=== PATIENT | female | born 1980 | race Caucasian/White ===

== ENCOUNTER 2017-12-19 06:59 | Day surgery (SDC) | payer OTHER ==
[2017-12-12 10:42] LABS: HEMATOCRIT 43.1 % (36.0-47.0); HEMOGLOBIN 14.7 g/dL (12.0-15.5); MEAN CORPUSCULAR HEMOGLOBIN 30.3 pg (27.0-33.4); MEAN CORPUSCULAR HGB CONC 34.1 g/dL (32.0-36.0); MEAN CORPUSCULAR VOLUME 89 fl (80-97); PLATELET COUNT 239 10^3/uL (150-450); RED BLOOD COUNT 4.85 10^6/uL (3.72-5.28); RED CELL DISTRIBUTION WIDTH 12.9 % (11.5-14.0); WHITE BLOOD COUNT 6.4 10^3/uL (4.0-10.5)
[2017-12-12 10:46] LABS: APPEARANCE,URINE CLEAR; BILIRUBIN,URINE SMALL (NEGATIVE); COLOR,URINE YELLOW; GLUCOSE, URINE NEGATIVE (NEGATIVE); KETONES,URINE NEGATIVE (NEGATIVE)
[2017-12-12 10:47] LABS: LEUKOCYTE ESTERASE,URINE TRACE (NEGATIVE); NITRITE,URINE NEGATIVE (NEGATIVE); PROTEIN,URINE 30 mg/dL (NEGATIVE); URINE SPECIFIC GRAVITY 1.023
[2017-12-12 11:23] LABS: ALANINE AMINOTRANSFERASE 62 U/L (9-52); ALBUMIN 4.3 g/dL (3.5-5.0); ALKALINE PHOSPHATASE 46 U/L (38-126); ANION GAP 9 (5-19); ASPARTATE AMINO TRANSFERASE 24 U/L (14-36); BILIRUBIN,DIRECT 0.3 mg/dL (0.0-0.4); BILIRUBIN,TOTAL 0.5 mg/dL (0.2-1.3); BLOOD UREA NITROGEN 12 mg/dL (7-20); CALCIUM 9.9 mg/dL (8.4-10.2); CARBON DIOXIDE 28 mmol/L (22-30); CHLORIDE 104 mmol/L (98-107); GLUCOSE 74 mg/dL (75-110); POTASSIUM 4.4 mmol/L (3.6-5.0); SODIUM 140.7 mmol/L (137-145)
[~2017-12-19 06:59] MED LIST: CEFAZOLIN 1 GM/D5W RTU 1 GM/50 ML RTUPB IV PRN; LACTATED RINGERS 1000 ML IV PRN; LIDOCAINE 0.5% INJ-PF (5 MG/ML) 50 ML SDV SUBCUT PRN; SCOPOLAMINE HYDROBROMIDE 1.5 MG PATCH.TD72 TD PRN
[2017-12-19] MEDS ORDERED: MIDAZOLAM 2 MG/2 ML INJ ONE (08:56)
[2017-12-19] MEDS ORDERED: FENTANYL CITRATE INJ/PF 100 MCG/2 ML AMPUL ONE (08:56)
[2017-12-19] MEDS ORDERED: PROPOFOL INJ 200 MG/20 ML VIAL IV ONE (08:56)
[2017-12-19] MEDS ORDERED: ACETAMINOPHEN 100 ML IV ONE (08:56)
[2017-12-19] MEDS ORDERED: BUPIVACAINE HCL 0.25 % INJ/PF (2.5 MG/1 ML) 30 ML VIAL ONE (09:13)
[2017-12-19] MEDS ORDERED: MORPHINE SULFATE 10 MG/ML INJ IV PRN (09:46)
[2017-12-19] MEDS ORDERED: FENTANYL CITRATE INJ/PF 100 MCG/2 ML AMPUL IV PRN ×3 (09:46)
[2017-12-19] MEDS ORDERED: MEPERIDINE HCL/PF INJ 25 MG/1 ML DISP.SYRIN IV PRN (09:46)
[2017-12-19] MEDS ORDERED: PROMETHAZINE HCL INJ 25 MG/1 ML VIAL IV PRN ×2 (09:46→11:11)
[2017-12-19] MEDS ORDERED: DIPHENHYDRAMINE HCL 50 MG/ML VIAL IV PRN (09:46)
[2017-12-19] MEDS: FENTANYL CITRATE INJ/PF 100 MCG/2 ML AMPUL ONE ×2 (10:40→10:44)
--- NOTE | 2017-12-19 11:09 | OPERATIVE REPORT E ---
Operative Report NAME: JULIO C HAYWOOD : 1980 AGE: 37Y DATE OF SURGERY: 12/19/2017 ROOM: PREOPERATIVE DIAGNOSIS: Undesired fertility. POSTOPERATIVE DIAGNOSES: 1. Undesired fertility. 2. Extensive pelvic endometriosis with adhesions. 3. Hepatomegaly. OPERATION: Laparoscopic Filshie clip application. SURGEON: KAEL FERRIS M.D. ANESTHESIA: General and 0.25% Marcaine. PERTINENT HISTORY AND OPERATIVE FINDINGS: This is a 37-year-old multiparous white female who desires elective sterilization. She is aware it is a permanent procedure with a small failure rate. At the time of surgery, the vulva appeared to be normal. The vagina was intrinsically normal with the exception that over in the right uterosacral ligament there were endometrial implants that could be visualized at the apex of the vagina. Cervix appeared to be normal. Uterus appeared to be normal. The tubes appeared to be normal. The ovaries were normal, however, there were adhesions between the sigmoid colon and the uterosacral ligaments on the left. There was pelvic endometriosis throughout the cul-de-sac area. The liver did appear to be minimally enlarged and the patient had a serosal fibroid. OPERATIVE PROCEDURE: Patient was brought to the OR, placed on the table in supine position, inducted under general anesthesia. Following this, she was repositioned in dorsal lithotomy position, prepped and draped in a sterile fashion. The bladder was drained of about 25 mL of clear urine. Pelvic under anesthesia was done. It became apparent that she had some cul-de-sac endometriosis on the right side. Cervix appeared normal. It easily admitted the uterine sound which was sounded to 8 cm. A tenaculum probe was inserted. The other equipment was removed. Attention was turned toward the abdominal wall. A Veress needle was introduced umbilically and carried through the various layers until the abdominal cavity was entered. Upon entering the abdominal cavity, it was hooked up to CO2. The opening pressure was 5 cm of water. She had approximately 3 L of CO2 injected to obtain a pneumoperitoneum. The Veress needle was removed. A small infraumbilical incision was made in a semilunar fashion as she had a previous incision there. Through this incision, a trocar and sleeve were inserted. The trocar was removed and through the sleeve, a laparoscope was inserted. A second incision was made suprapubically and through this incision a trocar and sleeve were inserted. The trocar was removed and through the sleeve, a probe was inserted. Contents of the pelvis and abdomen were video recorded and at this point in time, the probe was removed and the Filshie clip applicator was inserted. The salpinx on the right was then picked up at its isthmus site and Filshie clip was applied. The same procedure was carried out on the left side. We had taken pictures of this terminated procedure. The suprapubic sleeve was removed. There was no evidence of active bleeding. The CO2 was allowed to escape. The subumbilical sleeve was removed. Both incisions had approximately 3 mL of 0.25% Marcaine injected. The fascia was closed at both of these incisions with interrupted 0 Vicryl. The subumbilical incision was closed with a subcuticular using 4-0 Prolene. The suprapubic incision was closed with interrupted using 4-0 Prolene. Patient tolerated procedure well and left the operating room in satisfactory condition. The [place] uterine applicator was removed. A bivalve speculum was inserted. The cervix was inspected. There was no evidence of active bleeding. The anesthesia was stopped and patient was placed back in supine position and transferred to recovery room in satisfactory condition. DICTATING PHYSICIAN: KAEL FERRIS M.D. [id number] PHY#: [id number] ID: [id number] JOB#: [id number] ACCT: [id number] cc:KAEL FERRIS M.D. >
[2017-12-19] MEDS ORDERED: OXYCODONE-ACETAMINOPHEN 5-325 MG TABLET PO PRN ×2 (11:11)
[2017-12-19] MEDS ORDERED: OXYCODONE-ACETAMINOPHEN 5-325 MG TABLET ONE (11:20)
[2017-12-19 13:00] VITALS: BP 134/88
[2017-12-19] MEDS ORDERED: DEXAMETHASONE SOD PHOSPHATE INJ 4 MG/1 ML VIAL ONE (14:30)
[2017-12-19] MEDS ORDERED: ONDANSETRON HCL INJ/PF 4 MG/2 ML SDV ONE (14:30)
[2017-12-19] MEDS ORDERED: NEOSTIGMINE METHYLSULFATE 10 MG/10 ML VIAL ONE (14:30)
[2017-12-19] MEDS ORDERED: LIDOCAINE 2% INJ-PF (20 MG/ML) 2 ML AMPUL ONE (14:30)
[2017-12-19] MEDS ORDERED: ROCURONIUM BROMIDE INJ 50 MG/5 ML VIAL IV ONE (14:30)
[2017-12-19] MEDS ORDERED: GLYCOPYRROLATE INJ 0.4 MG/2 ML VIAL ONE (14:30)
== END 2017-12-19 12:50 | disposition home or self-care (01) ==
LOC: OROUT 06:59
PROVIDERS: ATTEND Obstetrics & Gynecology
PROC: 0UL74CZ Occlusion of Bilateral Fallopian Tubes with Extraluminal Device, Percutaneous Endoscopic Approach (ICD-10-PCS; principal; 2017-12-19 09:00)
DX: Z30.2 Encounter for sterilization (principal); R16.0 Hepatomegaly, not elsewhere classified; N80.3 Endometriosis of pelvic peritoneum; N73.6 Female pelvic peritoneal adhesions (postinfective); D25.2 Subserosal leiomyoma of uterus; Z79.899 Other long term (current) drug therapy
CPT/HCPCS: 36415; 85027; 81025; 80053; 81001; 88162; 88305 ×2; 58671; J2250; J0690; J3490 ×2; J1100; J3010; J2405; J2704; J0131; 851

== ENCOUNTER → 2018-01-07 | Outpatient (CLI) | payer OTHER ==
--- NOTE | 2018-01-07 13:24 | RADIOLOGY REPORT (SQ) ---
EXAM DESCRIPTION: U/S ABDOMEN LIMITED W/O DOP COMPLETED DATE/TIME: 01/07/2018 10:57 am REASON FOR STUDY: HEPATOMEGALY/ELEVATED LFTS R94.5 ABNORMAL RESULTS OF LIVER FUNCTION STUDIES R16.0 HEPATOMEGALY, NOT ELSEWHERE CLASSIFIED COMPARISON: None. TECHNIQUE: Dynamic and static grayscale images acquired of the abdomen and recorded on PACS. Additio nal selected color Doppler and spectral images recorded. LIMITATIONS: None. FINDINGS: PANCREAS: No masses. No peripancreatic edema or fluid collections. LIVER: Echotexture is coarse with increased echogenicity consistent with fatty infiltration. LIVER VASCULATURE: Normal directional flow of the main portal vein and hepatic veins. GALLBLADDER: No stones. Normal wall thickness. No pericholecystic fluid. ULTRASOUND-DETECTED JOSEPH'S SIGN: Negative. INTRAHEPATIC DUCTS AND COMMON DUCT: CBD and intrahepatic ducts normal caliber. No filling defects. INFERIOR VENA CAVA: Normal flow. AORTA: No aneurysm. RIGHT KIDNEY: Normal size. Normal echogenicity. No solid or suspicious masses. No hydronephrosis. No calcifications. PERITONEAL AND RIGHT PLEURAL SPACE: No ascites or effusions. OTHER: No other significant finding. IMPRESSION: FATTY INFILTRATION OF THE LIVER. OTHERWISE NORMAL RIGHT UPPER QUADRANT ULTRASOUND. TECHNICAL DOCUMENTATION: JOB ID: [id number] [employer]- All Rights Reserved Reading location - IP/workstation name: [email or web address]
== END ==
LOC: RAD 09:25
PROVIDERS: ATTEND Obstetrics & Gynecology
DX: R16.0 Hepatomegaly, not elsewhere classified (principal); R94.5 Abnormal results of liver function studies
CPT/HCPCS: 76705

== ENCOUNTER → 2019-04-09 | Outpatient (CLI) | payer OTHER ==
--- NOTE | 2019-04-09 15:08 | WOMENS IMAGING REPORT ---
EXAM DESCRIPTION: 3D SCREENING MAMMO BILAT COMPLETED DATE/TIME: 04/09/2019 2:47 pm REASON FOR STUDY: Z12.31 ROUTINE 3D BILATERAL SCREENING Z12.31 ENCNTR SCREEN MAMMOGRAM FOR MALIGNAN T NEOPLASM OF CHRISTIAN COMPARISON: 02/01/2014. EXAM PARAMETERS: Standard craniocaudal and mediolateral oblique views of each breast recorded using digital acquisition and breast tomosynthesis. Additional "push-back craniocaudal and mediolateral ob lique images acquired. Read with the assistance of CAD. .[facility] - R2 [employer] Version 9.2 LIMITATIONS: None. FINDINGS: IMPLANTS: Bilateral subpectoral implants. Findings present which are benign by mammographic criteria. No suspicious masses, calcifications or a rchitectural distortion. Benign mammographic findings may include one or more of the following: Smooth masses, popcorn/rim/co arse calcifications, asymmetries, post-procedure changes, and lesions with long-standing stability. IMPRESSION: BENIGN MAMMOGRAPHIC FINDINGS. BIRADS 2 BREAST DENSITY: c. The breasts are heterogeneously dense, which may obscure small masses. BIRAD: ASSESSMENT: 2 BENIGN FINDING(S) RECOMMENDATION: ROUTINE SCREENING COMMENT: The patient has been notified of the results by letter per MQSA requirements. Additional no tification policies are in place for contacting patient with suspicious or incomplete findings. Quality ID #225: The [employer] recommends an annual screening mammogram for women aged 40 years or over. This facility utilizes a reminder system to ensure that all patients receive reminder letters, and/or direct phone calls for appointments. This includes reminders for routine scr eening mammograms, diagnostic mammograms, or other Breast Imaging Interventions when appropriate. Th is patient will be placed in the appropriate reminder system. TECHNICAL DOCUMENTATION: FINDING NUMBER: (1) ASSESSMENT: (1) JOB ID: [id number] [employer]- All Rights Reserved Reading location - IP/workstation name: [email or web address]
== END ==
LOC: WI 14:25
PROVIDERS: ATTEND Obstetrics & Gynecology
DX: Z12.31 Encounter for screening mammogram for malignant neoplasm of breast (principal)
CPT/HCPCS: 77063; 77067